=== PATIENT | female | born 1975 | race African-American/Black ===

== ENCOUNTER → 2023-05-01 12:35 | Outpatient (BNVA) | payer OTHER, SELFPAY | PROVIDERS: PCP Internal Medicine; Visit Provider Surgery ==

== ENCOUNTER 2023-05-02 11:40 | Outpatient (AMB) | payer OTHER, SELFPAY ==
--- NOTE | 2023-05-02 11:15 | A.OFFVIS_ITS ---
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 Allergies duloxetine [From Cymbalta] Adverse Reaction (Intermediate, Verified 05/01/23 14:19) Abdominal Pain Penicillins Adverse Reaction (Intermediate, Verified 05/01/23 14:19) Rash Medication List - Last Reconciled 05/02/23 by JOHNNY Barrera acetaminophen mg PO albuterol sulfate 90 mcg/actuation inhalation azelastine intranasal biotin 1 mg PO DAILY cetirizine 10 mg PO DAILY cod liver oil 1 cap PO DAILY ergocalciferol (vitamin D2) 10 mcg PO DAILY meloxicam 15 mg PO DAILY multivitamin 1 tab PO DAILY pantoprazole 40 mg PO BID vitamin E (dl, acetate) 45 mg PO DAILY HPI HPI Comments History of Present Illness Details Pt is here to start the [facility] medical weight loss program. She heard about our program from her sister. Her goal is to lose weight and achieve a healthy lifestyle, She states that she was recently told that her HgbA1c was 6.1. She reports first being concerned about her weight over the last year, highest weight to date was 335. Current weight is 314.4 pounds with a BMI of 56.6. She has tried multiple methods of weight loss including fad diets without permanent results. She lives with her kids. She does not work. She wakes at:?7 am, and goes to bed at?10 pm. Dinner is at 6 pm. Breakfast: skip AM snack: skip Lunch: atkins RTD shake, little gaby cake or cookies PM snack: chips, candy, cookies Dinner: fiberglass grinder, pizza, take out food After dinner: ice cream cookies chips, little gaby cakes Other snacks: as above Liquids: 128 oz water, 8 oz brenda shiraz daily Alcohol/marijuana/tobacco intake: no etoh, (previously gallon brianna daily, 0 in 2.5 years), edible cannabis at night (3-4 x per night), no tobacco (quit last year- prev PPD x 10 yrs) Exercise: none no home equipment could join [employer] GERD score: 20 LILO score: 4 ESS score: 9 QOL score: 103 PFSH Surgical History S/P foot surgery, left Hx of cholecystectomy History of partial hysterectomy Social History Alcohol intake: never Patient Tobacco Use Status: Never used Tobacco Review of Systems Const All systems reviewed & are unremarkable except as noted in HPI and below Assessment & Plan Assessment & Plan (1) Morbid obesity: Code(s): E66.01 - Morbid (severe) obesity due to excess calories Plan: This is a?47 yo female who will start our MWL program.? She will be given a meal plan, exercise plan and follow-up appointments. ? Adequate sleep of 7-8 hours per night discussed, awakening at 7 am and going to bed at 10 pm ? Purchase body composition analyzer scale (Weso recommended) and check weight weekly. The best time to do this is first thing in the morning after going to the bathroom. 1. Nutritional counseling: Be sure to careful read the number of scoops per shake Start with 2 celebrate rebuild shakes ([facility] [employer], [employer], [employer]), (2 scoops in 12 oz unsweetened almond milk) First shake at 8am-10am, Second shake at 11am-1pm 2 protein bars (My [employer] bars at [facility] [employer], [email or web address], [employer]) First bar at 2pm-4pm. Dinner at 6pm (12 forks of protein and 12 forks of salad/vegetables). Meal to include lean meat (beef, fish, pork, turkey, chicken), cooked vegetables or a salad with olive oil and/or fruits (berries, pears, apples, kiwi). Avoid salt, breads, potatoes, rice, pasta, desserts. Another bar at 7pm-9pm. Try to drink 64-80 oz of water daily and avoid soda and juices. ?2. Each shake would be drunk slowly, like coffee in a period of 2 hours. ?3. Cut each bar in 4 pieces and eat each piece in 30 min ?to make each bar last 2 hours. ?4. I emphasized the importance of measuring accurately the food portion and measure it carefully when serving the food on the plate ?5. The meal portions include 12 full-size forks of meat and 12 full-size forks of salad. You always eat the meat portion but you can replace up to half of the forks of salad/vegetables with rice, potatoes or pasta, or a fruit ?if you like. The less you do it the better weight loss will be. ?6. One full-size fork is what can be scooped on the fork without falling aside and not what can be bit with the fork. Use regular forks like those you find in a typical restaurant. ?7.? Please send me weight measurements as soon as possible and then once a week. Always include your diet and exercise plan. Alternatively come weekly at the office for weight checks and send me the measurements. ?8. Exercise counseling: Begin by watching a stretching for beginners video. Start slowly and begin to stretch your muscles. You should do this before and after each exercise session to prevent injury. Please join [employer] gym near your home. Ask the assistant restaurant general manager or one of the trainers how to use the machines if you are unfamiliar with them. Start elliptical with a resistance of 2. Increase resistance by 1 every 3 min to your most comfortable resistance with a max resistance of 8. Reduce the resistance by 1 every 3 minutes back down to 2 and repeat cycles for 300 calories. Alternatively, start treadmill with a speed of 3.0 and incline of 0, increasing incline by 1 every 3 minutes to the highest comfortable level (max 6 for now) then decrease in the same fashion. Repeat pro cess to a goal of 300 calories. Goal of 2000 calories burned or more weekly. You may also consider use of the recumbent stationary bike. The easiest would be to chose the fat-burn or interval training program on the machine and do this until you reach the 300 calorie goal. Alternatively, you can manually adjust the resistance in a similar fashion as mentioned above, (resistance of 2-8 with a goal speed of 12 mph). Tracking calories is essential. 9. Alternatively start walking outside daily, tracking calories with a goal of 300 calories per day, daily. You can download the miguel [employer] which can track your time, distance and calories while walking outside. You press start in the miguel when you start and then stop when you are finished. 10.? It is important to communicate with me weekly with your weight measurements and if you are having any problems with the plans. 11. Please follow the diet plan exactly, without any change. If you do not like something about the plan or you feel hungry, you need to communicate with me so I can help you revise the plan. You should not change the plan yourself. Text me at [phone] 12. Goal is to lose at least 12 pounds in the first month Patient is morbidly obese and is not considered stable at this time.?I spent a total of 70 minutes reviewing/updating records, examining the patient and counseling the patient on weight management as detailed above. Telehealth Telehealth Location of provider rendering services: practice address Location of patient: other Patient Identification confirmed using: Name, : Yes Telehealth method: voice only Patient verbally consented to treatment: Yes Patient verbally consented to billing insurance company: Yes Patient informed of any privacy concerns related to visit: Yes Minutes spent on Phone/Video with Pt.: 45 Coding Level of Care Code Tele [facility] Pt Level 5 (01024) Diagnoses Morbid obesity E66.01 Time Spent (min) 09
[2023-05-02 12:35] VITALS: BMI 56.6
== END 2023-05-02 12:52 | disposition home or self-care (01) ==
LOC: HO.HBS 11:40
PROVIDERS: PCP Internal Medicine; Visit Provider Physician Assistant Surgical
DX: E66.01 Morbid (severe) obesity due to excess calories (principal); Z68.43 Body mass index [BMI] 50.0-59.9, adult
CPT/HCPCS: 99443

== ENCOUNTER → 2023-05-02 11:40 | Outpatient (BNVA) | payer OTHER, SELFPAY | PROVIDERS: PCP Internal Medicine; Visit Provider Physician Assistant Surgical ==

== ENCOUNTER 2023-05-29 14:06 | Outpatient (AMB) | payer OTHER, SELFPAY ==
--- NOTE | 2023-05-29 13:55 | A.OFFVIS_ITS ---
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 Allergies duloxetine [From Cymbalta] Adverse Reaction (Intermediate, Verified 05/01/23 14:19) Abdominal Pain Penicillins Adverse Reaction (Intermediate, Verified 05/01/23 14:19) Rash HPI Nutrition Presentation Details MWL No weight for todays appt Reason for consult elevated BMI Diet Assmnt Details I am doing my own thing meals are just fruit or water dinner 8pm vegetables and protein This week I am detoxing Alcohol/marijuana/tobacco intake: no etoh, (previously galllakesha herzogy daily, 0 in 2.5 years), edible cannabis at night (3-4 x per night), no tobacco (quit last year- prev PPD x 10 yrs) Dietary counseling reduction Diagnosis Nutrition problem #1 not ready diet/lifestyle Monitoring/Goals Nutrition problem monitoring total energy intake, level of knowledge/skill, total PRO intake, total CHO intake and weight Most Recent Diabetes Results: No Data to Display [facility] Surgical History S/P foot surgery, left Hx of cholecystectomy History of partial hysterectomy Social History Alcohol intake: never Patient Tobacco Use Status: Never used Tobacco Assessment & Plan Assessment & Plan (1) Morbid obesity: Code(s): E66.01 - Morbid (severe) obesity due to excess calories Plan Educated pt on the importance of getting adequate nutrition, mainly protein, as well as structured meals. Encouraged a more sustainable approach than what she is choosing to do now. I encouraged she at least try portions of PA's nutrition plan and will communicate what is working vs not working at her follow up in a month. Telehealth Telehealth Location of provider rendering services: practice address Location of patient: address on file Patient Identification confirmed using: Name, : Yes Telehealth method: voice only Patient verbally consented to treatment: Yes Patient verbally consented to billing insurance company: Yes Patient informed of any privacy concerns related to visit: Yes Minutes spent on Phone/Video with Pt.: 20 Coding Level of Care Code Nutr Indiv Intake (94124) Diagnoses Morbid obesity E66.01 Time Spent (min) 20
== END 2023-05-29 14:18 | disposition home or self-care (01) ==
LOC: HO.HBS 14:06
PROVIDERS: PCP Internal Medicine; Visit Provider Dietitian, Registered
DX: E66.01 Morbid (severe) obesity due to excess calories (principal)

== ENCOUNTER → 2023-05-29 14:06 | Outpatient (BNVA) | payer OTHER, SELFPAY | PROVIDERS: PCP Internal Medicine; Visit Provider Dietitian, Registered | DX: E66.01 Morbid (severe) obesity due to excess calories (principal); Z71.3 Dietary counseling and surveillance | CPT/HCPCS: 97802 ==

== ENCOUNTER → 2023-12-23 10:34 | Outpatient (BNVA) | payer OTHER, SELFPAY | PROVIDERS: PCP Internal Medicine; Visit Provider Surgery ==